=== PATIENT | male | born 1980 | race Caucasian/White ===

== ENCOUNTER 2019-12-26 12:54 | Emergency (ER) | payer OTHER, SELFPAY ==
[2019-12-26 13:00] VITALS: BP 113/69; PULSE 62; RESP 14; TEMP 36.4; O2SAT 98; BMI 27.1
--- NOTE | 2019-12-26 13:02 | ED.EXTPRO ---
HPI - Extremity Problem General Chief complaint: Extremity Injury, Upper Stated complaint: something wrong with right elbow Time Seen by Provider: 12/26/19 13:00 Source: patient Mode of arrival: Ambulatory Limitations: no limitations History of Present Illness HPI Narrative: This is a 39-year-old male who comes to the emergency department with complaint of right elbow pain. Patient states it started last day. He states that he initially noticed while he was doing couple push ups something felt off and on the outer edge of the elbow and since then has had increasing pain in the outer elbow. Patient states movement, particularly flexion extension is uncomfortable. He has noticed some mild swelling at the distal end of the elbow. He has not any numbness or tingling. Patient states that after the pushups he was playing with his kids lifting them quite a bit and this may have continued to exacerbate things. He has not had any fevers. No redness, warmth or other skin changes. He has noted that he has some discomfort with movement and gripping with his hand that radiates up into the elbow. He denies any medical problems otherwise. States that he is healthy, he had a prior surgery for testicular torsion and 1 on his left hand for fracture. He did take 600 mg of ibuprofen last night with minimal improvement. He uses smokeless tobacco, occasional alcohol with no illicit. He receives care through the . Related Data Previous Rx's Medication Instructions Recorded prednisone 40 mg PO DAILY #10 tab 12/26/19 Allergies Allergy/AdvReac Type Severity Reaction Status Date / Time No Known Drug Allergies Allergy Verified 12/26/19 13:08 Review of Systems Review of Systems ROS Unobtainable: All systems reviewed & are unremarkable except as noted in HPI and below Patient History Social History Smoking Status: Current every day smoker tobacco type: smokeless tobacco alcohol intake frequency: a few times a month Substance Use Type: does not use Exam Narrative Exam Narrative: GENERAL: Alert and oriented x three, well-nourished, well-appearing male in mild distress. HEENT: Head normocephalic, atraumatic, EOMI, pupils reactive, face symmetric, moist mucous membranes NECK: Supple, full range of motion CARDIOVASCULAR: Regular rate and rhythm without murmurs, rubs or gallops. RESPIRATORY: Breath sounds equal bilaterally, no wheezes rales or rhonchi. ABDOMEN: Soft, nontender. Normoactive bowel sounds all 4 quadrants. No guarding or rebound, rigidity, no mass EXTREMITIES: Normal range of motion, no clubbing. Patient has tenderness over the olecranon. He has very, very mild swelling. No warmth, no redness. 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 Normal sensation throughout with 2+ radial pulse bilaterally. Neurovascularly intact. NEUROLOGICAL: Cranial nerves II through XII grossly intact. Moving all extremities SKIN: Warm, dry, no petechiae, no rashes or lesions, no lacerations. Initial Vital Signs Initial Vital Signs: Vital Signs Temperature 97.5 F L 12/26/19 13:00 Pulse Rate 62 12/26/19 13:00 Respiratory Rate 14 12/26/19 13:00 Blood Pressure 113/69 12/26/19 13:00 Pulse Oximetry 98 12/26/19 13:00 Course Orders Ordered: ED Orders 12/26/19 13:09 XR elbow RT min 3V Stat Vital Signs Vital signs: Vital Signs - 8 hr 12/26/19 13:00 Temperature 97.5 F L Pulse Rate 62 Respiratory Rate 14 Blood Pressure 113/69 Pulse Oximetry 98 MDM - Extremity (Nontraumatic) Imaging Data Right elbow x-ray: Radiologist's Impression: [address] [address] XRay Report Signed Patient: Nemesio Velez R#: [id number] : 1980Acct:[id number] Age/Sex: 39 / MDate of Service: 12/26/19 Loc: ED Accession Number: [id number] Procedure: XR elbow RT min 3V Ordering Provider: Candice Schroeder D.O. PROCEDURE: XR ELBOW RT MIN 3V INDICATIONS: right elbow pain, started after pushups TECHNIQUE: 3 views of the elbow were acquired. COMPARISON: None. FINDINGS: Bones: No fractures or dislocations. Triceps tendon insertion spurring at the dorsal olecranon. No suspicious bony lesions. Soft tissues: No elbow joint effusion. No suspicious soft tissue calcifications. IMPRESSION: Triceps calcific tendinitis, at the tendon insertion site, no effusion or loose body seen. No trauma found. Dictated by: Nelson De Jesus M.D. on 12/26/2019 at 13:57 Approved by: Nelson De Jesus M.D. on 12/26/2019 at 13:58 [facility] Narrative Medical decision making narrative: Patient xray whos triceps tendon insertion spurring consistent with a triceps calcific tendonitis. Patient has very mild swelling of bursa. He developed symptoms after push-ups and lifting and playing with children. My suspicion for infectious cause is low. Suspect more tendinitis causing pain and increased swelling, return precautions discussed. Plan for RICE, short course of prednisone and NSAIDs as tolerated. Discharge Plan Departure Patient Disposition: Home Clinical Impression: Tendinitis of right triceps Discharge Date/Time: 12/26/19 14:28 Instructions: DI for Tendinitis Activity Restrictions/Additional Instructions: Follow up with orthopedic surgery at [facility], call to set up appointment. If you do not have orthopedic surgery available you may follow up with local orthopedic surgery. Your imaging today shows spurring at the triceps tendon insertion site suspicious for triceps calcific tendonitis. Avoid repetitive movements with your elbow, rest as often as able, you may use Ice to the affected area 10 minutes hourly. Take steroids once daily until gone. Take this with food. Continue ibuprofen up to 600mg every 6 hours as needed for inflammation. You may take Tylenol up to 1000mg every 8 hours as needed for pain. Return for fevers greater than 100.4F, worsening swelling, redness, new numbness, tingling or weakness. Prescriptions: New prednisone 20 mg tablet 40 mg PO DAILY Qty: 10 RF: 0 Referrals: Aylin Roman MD [Physician] -
--- NOTE | 2019-12-26 13:09 | DI.RAD.S_ITS ---
PROCEDURE: XR ELBOW RT MIN 3V INDICATIONS: right elbow pain, started after pushups TECHNIQUE: 3 views of the elbow were acquired. COMPARISON: None. FINDINGS: Bones: No fractures or dislocations. Triceps tendon insertion spurring at the dorsal olecranon. No suspicious bony lesions. Soft tissues: No elbow joint effusion. No suspicious soft tissue calcifications. IMPRESSION: Triceps calcific tendinitis, at the tendon insertion site, no effusion or loose body seen. No trauma found. Dictated by: Nelson De Jesus M.D. on 12/26/2019 at 13:57 Approved by: Nelson De Jesus M.D. on 12/26/2019 at 13:58
== END 2019-12-26 14:28 | disposition home or self-care (01) ==
PROVIDERS: Emergency Provider Emergency Medicine
DX: M77.8 Other enthesopathies, not elsewhere classified (principal)
CPT/HCPCS: 73080; 99283

== ENCOUNTER → 2020-01-06 16:06 | Outpatient (CLI) | payer OTHER, SELFPAY ==
--- NOTE | 2020-01-06 | DI.MRI.S_ITS ---
PROCEDURE: MR ELBOW RT WO CON INDICATIONS: PAIN IN RIGHT ELBOW TECHNIQUE: Noncontrast coronal proton density fast spin echo and T2 fast spin echo with fat saturation, axial and sagittal T1 spin echo and T2 fast spin echo with fat saturation through the elbow. COMPARISON: [facility], CR, XR ELBOW RT MIN 3V, 12/26/2019, 13:03. FINDINGS: Image quality: Diagnostic. Lateral structures: The lateral ulnar collateral ligament and radial collateral ligament both appear intact. The overlying common extensor tendon also appears normal. Medial structures: The ulnar collateral ligament appears intact. The overlying common flexor tendon appears normal. The ulnar nerve appears normal in size and signal within the cubital tunnel. Anterior structures: The biceps and brachialis tendons both appear intact as they insert onto the proximal radius and ulna, respectively. No bicipitoradial bursal fluid. The median and radial neurovascular bundles appear normal; no focal muscle atrophy to suggest nerve impingement. Posterior structures: The distal triceps tendon is intact, but demonstrates mild increased signal in its distal course. There is mild peritendinous edema. No significant fluid is contained within the olecranon bursa. Bones: Moderate marrow edema is identified involving the olecranon process that extends into an enthesophyte at the triceps tendon insertion. On the conventional radiograph, there may be a very subtle injury involving the enthesophyte at the triceps tendon insertion. Otherwise, the remainder of the midchest a structures are unremarkable. No displaced fractures are present. There is no dislocation. There may be a small elbow effusion. No significant degenerative changes of the elbow are evident. IMPRESSION: 1. Moderate distal triceps tendinopathy without significant tearing. 2. Possible nondisplaced injury involving the enthesophyte at the triceps tendon insertion with reactive marrow edema involving the olecranon. 3. No displaced fractures. 4. Small elbow effusion. Dictated by: Jamison Farris M.D. on 01/07/2020 at 10:02 Approved by: Jamison Farris M.D. on 01/07/2020 at 10:06
== END ==
PROVIDERS: Referring Provider Student in an Organized Health Care Education/Training Program; Visit Provider Student in an Organized Health Care Education/Training Program
DX: M25.521 Pain in right elbow (principal); M25.421 Effusion, right elbow; M67.921 Unspecified disorder of synovium and tendon, right upper arm
CPT/HCPCS: 73221